=== PATIENT | male | born 1985 | race Two or more races ===

== ENCOUNTER 2018-07-30 09:41 | Emergency (ER) | payer SELFPAY ==
[2018-07-30] MEDS: IBUPROFEN 200 MG TAB PO (11:24)
[2018-07-30] MEDS: ACETAMINOPHEN 325 MG TAB PO (11:24)
== END 2018-07-30 12:01 | disposition home or self-care (01) ==
LOC: FTE 12:01
DX: M62.830 Muscle spasm of back (principal); F17.210 Nicotine dependence, cigarettes, uncomplicated
CPT/HCPCS: 99283